=== PATIENT | male | born 1975 | race African-American/Black ===

== ENCOUNTER 2020-05-04 18:05 | Inpatient (IN) ==
[2020-05-04] MEDS ORDERED: ACETAMINOPHEN 325 MG TABLET PO PRN (22:39)
[2020-05-04] MEDS ORDERED: MORPHINE 4 MG/1 ML VIAL IV PRN (22:39)
[2020-05-04] MEDS ORDERED: ONDANSETRON 4 MG/2 ML VIAL IV PRN (22:39)
[2020-05-04] MEDS ORDERED: hydrALAZINE 20 MG/1 ML VIAL IV PRN (22:39)
[2020-05-04] MEDS ORDERED: GLUCAGON 1 MG VIAL IM PRN (22:39)
[2020-05-04] MEDS ORDERED: ALBUTEROL 2.5 MG/3 ML NEB RESP TX PRN (22:39)
[2020-05-04] MEDS ORDERED: PROMETHAZINE 25 MG/1 ML VIAL IM PRN (22:39)
[2020-05-04] MEDS ORDERED: diphenhydrAMINE CAP 25 MG CAPSULE PO PRN (22:39)
[2020-05-04] MEDS ORDERED: NICOTINE 21 MG/24 HR PATCH TRANSDERM PRN (22:39)
[2020-05-04] MEDS ORDERED: DEXTROSE 50% 25 GM/50 ML VIAL IV PRN (22:39)
[2020-05-04] MEDS ORDERED: guaiFENesin/DM ER 600-30 MG TABLET PO PRN (22:39)
[2020-05-04] MEDS ORDERED: SODIUM CHLORIDE 0.9% 1,000 ML IV ONE (22:42)
[2020-05-04] MEDS ORDERED: VANCOMYCIN INJ 750 MG in SODIUM CHLORIDE 0.9% 250 ML IV PRN (23:00)
[2020-05-04] MEDS ORDERED: INSULIN GLARGINE 100 UNIT/ML SUBCUT SCH (23:00)
[2020-05-04 23:16] LABS: ABG Base Excess 1.6 MMOL/L (-2.5-2.5); ABG HCO3 25.8 MMOL/L (20-26); ABG Oxygen Saturation 96.6 % (95-100); ABG PCO2 41.7 MM HG (35-48); ABG PH 7.409 (7.35-7.45); ABG PO2 86.2 MM HG (80-95); ABG TCO2 23.8 MMOL/L (23-27); Allen Test Positive; Pt O2 Delivery Device Room Air
[2020-05-04] MEDS: INSULIN LISPRO 100 UNIT/ML SUBCUT SCH (23:25)
[2020-05-04 23:56] LABS: Basophils # 0.1 10*3/uL (0.0-0.2); Basophils % 0.3 % (0.0-0.8); Eosinophils # 0.2 10*3/uL (0.0-0.87); Eosinophils % 1.2 % (0.00-10.9); Hematocrit 35.7 VOL% (42.0-52.0); Hemoglobin 11.4 GM/DL (14.0-18.0); Immature Granulocytes % 0.7 %; Immature Granulocytes Absolute 0.14 #; Lymphocytes # 1.8 10*3/uL (1.4-4.0); Lymphocytes % 9.4 % (21.2-54.2); Mean Corpuscular HGB Conc 31.9 GM/DL (32-36); Mean Platelet Volume 11.2 FL (9.6-12.0); Neutrophils % 81.4 % (38.7-73.9); Platelet Count 291 T/CUMM (130-400); Red Blood Count 4.01 MC/CUMM (3.8-5.5); White Blood Count 18.8 T/CUMM (4-12)
[2020-05-05 00:08] LABS: Alanine Aminotransferase 25 U/L (16-61); Albumin 2.3 G/DL (3.4-5.0); Alkaline Phosphatase 116 U/L (45-117); Aspartate Amino Transferase 9 U/L (0-37); Bilirubin,Indirect 0.3 MG/DL (0.0-1.0); Bilirubin,Total < 0.39 MG/DL (0.2-1.0); Blood Urea Nitrogen 39 MG/DL (7-18); Calcium 8.9 MG/DL (8.5-10.1); Estimated Glom Filtration Rate 8 ML/MIN; Glucose 458 MG/DL (74-106); Osmolality,Calculated 279.5 MOS/KG (273-304); Total Protein 7.5 G/DL (6.4-8.3)
[2020-05-05 00:09] LABS: PT Patient Result 10.9 SECS (9.8-11.9); Partial Thromboplastin Time 31.2 SECS (23.9-33.8)
[2020-05-05] MEDS: SODIUM CHLORIDE 0.9% 1,000 ML IV SCH (00:25)
[2020-05-05] MEDS: CLINDAMYCIN INJ 600 MG in PREMIX 1 EACH IV SCH ×4 (00:45→18:17)
[2020-05-05] MEDS: INSULIN LISPRO 100 UNIT/ML SUBCUT SCH ×5 (04:05→21:40)
[2020-05-05 06:24] LABS: Basophils # 0.1 10*3/uL (0.0-0.2); Basophils % 0.3 % (0.0-0.8); Eosinophils # 0.2 10*3/uL (0.0-0.87); Eosinophils % 0.8 % (0.00-10.9); Hematocrit 38.2 VOL% (42.0-52.0); Hemoglobin 12.2 GM/DL (14.0-18.0); Immature Granulocytes % 0.8 %; Lymphocytes # 2.2 10*3/uL (1.4-4.0); Mean Corpuscular HGB Conc 31.9 GM/DL (32-36); Mean Corpuscular Volume 89.9 FL (87-102); Mean Platelet Volume 10.8 FL (9.6-12.0); Monocytes % 5.6 % (1.7-12.7); Neutrophils % 83.5 % (38.7-73.9); Platelet Count 319 T/CUMM (130-400); Red Blood Count 4.25 MC/CUMM (3.8-5.5); Red Cell Distribution Width 15.1 % (9.3-17.3); White Blood Count 24.4 T/CUMM (4-12)
[2020-05-05 06:50] LABS: Calcium 9.3 MG/DL (8.5-10.1); Osmolality,Calculated 266.9 MOS/KG (273-304)
[2020-05-05 07:00] LABS: Anisocytosis 1+; Hypochromasia 2+
[2020-05-05 07:01] LABS: Platelet Estimate Normal; Target Cells Slight
[2020-05-05] MEDS ORDERED: INSULIN LISPRO 100 UNIT/ML SUBCUT SCH (07:30)
[2020-05-05] MEDS: DOCUSATE SODIUM 100 MG CAPSULE PO SCH ×2 (09:57→21:42)
[2020-05-05] MEDS: PANTOPRAZOLE 40 MG TABLET PO SCH (09:57)
[2020-05-05] MEDS ORDERED: VANCOMYCIN INJ 500 MG in SODIUM CHLORIDE 0.9% 100 ML IV PRN (10:44)
[2020-05-05] MEDS ORDERED: CLINDAMYCIN 600 MG/4 ML VIAL ONE (13:21)
[2020-05-05] MEDS ORDERED: LIDOCAINE 2% 5 ML VIAL ONE (14:39)
[2020-05-05] MEDS ORDERED: propofoL 200 MG/20 ML VIAL IV ONE (14:39)
[2020-05-05] MEDS ORDERED: SUCCINYLCHOLINE 200 MG/10 ML VIAL ONE (14:39)
[2020-05-05] MEDS ORDERED: fentaNYL 100 MCG/2 ML VIAL ONE (14:39)
[2020-05-05] MEDS ORDERED: SEVOFLURANE 1 UNIT/15 MINUTE INH ONE (14:39)
[2020-05-05] MEDS ORDERED: MIDAZOLAM 2 MG/2 ML VIAL ONE (14:39)
[2020-05-05] MEDS ORDERED: SODIUM CHLORIDE 0.9% 250 ML IV ONE (14:39)
[2020-05-05] MEDS ORDERED: VANCOMYCIN INJ 500 MG in SODIUM CHLORIDE 0.9% 100 ML IV ONE (17:00)
[2020-05-05] MEDS: INSULIN GLARGINE 100 UNIT/ML SUBCUT SCH (21:42)
[2020-05-06] MEDS: CLINDAMYCIN INJ 600 MG in PREMIX 1 EACH IV SCH ×5 (00:55→23:43)
[2020-05-06] MEDS: INSULIN LISPRO 100 UNIT/ML SUBCUT SCH ×4 (08:13→21:14)
[2020-05-06] MEDS: PANTOPRAZOLE 40 MG TABLET PO SCH (08:52)
[2020-05-06] MEDS: DOCUSATE SODIUM 100 MG CAPSULE PO SCH ×2 (08:52→21:12)
[2020-05-06] MEDS: SODIUM CHLORIDE 0.9% 1,000 ML IV SCH (18:03)
[2020-05-06] MEDS: INSULIN GLARGINE 100 UNIT/ML SUBCUT SCH (21:14)
[2020-05-07] MEDS: CLINDAMYCIN INJ 600 MG in PREMIX 1 EACH IV SCH ×3 (05:43→18:43)
[2020-05-07] MEDS: INSULIN LISPRO 100 UNIT/ML SUBCUT SCH ×4 (09:23→22:16)
[2020-05-07] MEDS: DOCUSATE SODIUM 100 MG CAPSULE PO SCH ×2 (09:24→22:15)
[2020-05-07] MEDS: PANTOPRAZOLE 40 MG TABLET PO SCH (09:25)
[2020-05-07] MEDS: SODIUM CHLORIDE 0.9% 1,000 ML IV SCH (15:16)
[2020-05-07] MEDS: INSULIN GLARGINE 100 UNIT/ML SUBCUT SCH (22:17)
[2020-05-08] MEDS: CLINDAMYCIN INJ 600 MG in PREMIX 1 EACH IV SCH ×3 (01:23→12:53)
[2020-05-08] MEDS: SODIUM CHLORIDE 0.9% 1,000 ML IV SCH (03:06)
[2020-05-08 06:19] LABS: Basophils # 0.1 10*3/uL (0.0-0.2); Basophils % 0.4 % (0.0-0.8); Eosinophils # 0.4 10*3/uL (0.0-0.87); Eosinophils % 2.3 % (0.00-10.9); Hematocrit 32.9 VOL% (42.0-52.0); Hemoglobin 10.5 GM/DL (14.0-18.0); Immature Granulocytes % 0.9 %; Immature Granulocytes Absolute 0.16 #; Lymphocytes # 2.2 10*3/uL (1.4-4.0); Lymphocytes % 12.8 % (21.2-54.2); Mean Corpuscular HGB Conc 31.9 GM/DL (32-36); Mean Corpuscular Volume 88.7 FL (87-102); Mean Platelet Volume 10.9 FL (9.6-12.0); Monocytes % 6.5 % (1.7-12.7); NRBC # 0.02 10*3/uL; Neutrophils % 77.1 % (38.7-73.9); Platelet Count 296 T/CUMM (130-400); Red Blood Count 3.71 MC/CUMM (3.8-5.5); White Blood Count 17.4 T/CUMM (4-12)
[2020-05-08 06:37] LABS: Calcium 8.4 MG/DL (8.5-10.1); Osmolality,Calculated 284.2 MOS/KG (273-304)
[2020-05-08] MEDS: INSULIN LISPRO 100 UNIT/ML SUBCUT SCH (08:49)
[2020-05-08] MEDS: DOCUSATE SODIUM 100 MG CAPSULE PO SCH (08:51)
[2020-05-08] MEDS: PANTOPRAZOLE 40 MG TABLET PO SCH (08:51)
[2020-05-08] MEDS ORDERED: MULTIVITAMIN (BEROCCA) TABLET PO SCH (09:00)
[2020-05-08] MEDS ORDERED: VANCOMYCIN INJ 500 MG in SODIUM CHLORIDE 0.9% 100 ML IV PRN (12:07)
[2020-05-08] MEDS ORDERED: VANCOMYCIN INJ 500 MG in SODIUM CHLORIDE 0.9% 100 ML IV ONE (13:00)
[2020-05-08 14:31] VITALS: BP 164/92
== END 2020-05-08 16:33 | disposition home health service (06) | DRG 570 ==
LOC: N.3E → SUATTDRO 22:39
PROVIDERS: ADMIT Internal Medicine; ATTEND Internal Medicine